=== PATIENT | female | born 1995 | race Hispanic/Latino ===

== ENCOUNTER 2017-10-05 15:39 | Emergency (ER) | payer OTHER ==
[2017-10-05 17:06] LABS: Absolute Lymphocytes (CBC) 1.8 K/uL (0.7-4.9); Absolute Monocytes 0.5 K/uL (0.1-1.3); Absolute Neutrophil 7.4 K/uL (1.8-8.0); Basophils % 0.2 % (0-1.3); Eosinophils % 0.9 % (0-4.4); Hematocrit 38.1 % (36.0-45.0); Lymphocytes % 18.2 % (15.3-44.8); MCH 31.4 pg (27.0-35.0); MCV 93.7 fL (80-100); MPV 9.8 fL (7.6-11.3); Monocytes % 5.3 % (3.3-12.3); RBC Red Blood Cell Count 4.07 M/uL (3.86-4.86)
[2017-10-05 17:20] LABS: Urine Blood NEGATIVE (NEG); Urine Glucose NEGATIVE (NEG); Urine Protein NEGATIVE (NEG); Urine pH 5.5 (5.0-7.0)
[2017-10-05 17:24] LABS: Urine Bacteria <20 /HPF (<20); Urine Culture Reflex Order NOT NEEDED; Urine RBC <5 /HPF (NONE SEEN)
--- NOTE | 2017-10-05 17:42 | ER ---
Nurse's Notes [facility] Name: Yuridia Guzman Age: 22 yrs Sex: Female : 1995 Arrival Date: 10/05/2017 Time: 15:42 Bed 26 Private MD: Out, [facility] Diagnosis: Intrauterine Presentation: 10/05 16:00 Presenting complaint: Patient states: I went to the doctor last week because something aj1 felt wrong and I thought I had lost the baby. I've been having a lot of bleeding. I went to the office and they did the baby's heart rate and it was 158. This morning I've felt really drained. My head is throbbing and I'm having pain roll across my stomach, I'm having nonstop diarrhea and back pain." Patient states she is 14 weeks . Denies vaginal bleeding at this time. States she has vomited 3 times today. Transition of care: patient was not received from another setting of care. Onset of symptoms was October 05, 2017. Risk Assessment: Do you want to hurt yourself or someone else? Patient reports no desire to harm self or others. Initial Sepsis Screen: Does the patient meet any 2 criteria? No. Patient's initial sepsis screen is negative. Does the patient have a suspected source of infection? No. Patient's initial sepsis screen is negative. Care prior to arrival: None. 16:00 Method Of Arrival: Ambulatory aj1 16:00 Acuity: KAYCEE 3 aj1 Triage Assessment: 16:11 General: Appears in no apparent distress. comfortable, Behavior is calm, cooperative, aj1 appropriate for age. Pain: Pain currently is 7 out of 10 on a pain scale. Neuro: Level of Consciousness is awake, alert, obeys commands. Cardiovascular: Patient's skin is warm and dry. Respiratory: Airway is patent Respiratory effort is even, unlabored, Respiratory pattern is regular, symmetrical. GI: Reports lower abdominal pain, diarrhea, nausea, vomiting. : Denies vaginal bleeding. Derm: Skin is pink, warm \\T\\ dry. normal. 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 - Social history:: Smoking status: Patient/guardian denies using tobacco. - Ebola Screening: : No symptoms or risks identified at this time. - Family history:: not pertinent. - Hospitalizations: : No recent hospitalization is reported. Screenin:04 Abuse screen: Denies threats or abuse. Denies injuries from another. Nutritional rv screening: No deficits noted. Tuberculosis screening: No symptoms or risk factors identified. Fall Risk None identified. Assessment: 16:45 General: Appears in no apparent distress. comfortable, Behavior is calm, cooperative. rv 16:45 Pain: Complains of pain in abdomen. Neuro: Level of Consciousness is awake, alert, rv obeys commands, Oriented to person, place, time, situation. Cardiovascular: Capillary refill < 3 seconds. Respiratory: Airway is patent. GI: Bowel sounds present X 4 quads. Abd is soft and non tender Abd is non tender. : No signs and/or symptoms were reported regarding the genitourinary system. EENT: No signs and/or symptoms were reported regarding the EENT system. Derm: Skin is intact. Vital Signs: 16:11 BP 114 / 69; Pulse 89; Resp 18; Temp 97.5(O); Pulse Ox 99% on R/A; Weight 54.88 kg (R); aj1 Height 5 ft. 0 in. (152.40 cm); 18:08 BP 101 / 62; Pulse 82; Pulse Ox 100% on R/A; rv 16:11 Body Mass Index 23.63 (54.88 kg, 152.40 cm) aj1 ED Course: 15:42 Patient arrived in ED. sb2 15:42 Out, [facility] is Private Physician. sb2 16:08 Triage completed. aj1 16:11 Arm band placed on Patient placed in an exam room. aj1 16:18 Brent Peep MD is Attending Physician. rn 16:46 Leatha Garcia, GLORIA is Primary Nurse. kr2 16:50 Inserted saline lock: 20 gauge in right antecubital area, using aseptic technique. kr2 Blood collected. 17:04 Patient has correct armband on for positive identification. Placed in gown. Bed in low rv position. Call light in reach. Side rails up X 1. Pulse ox on. NIBP on. 17:40 Ultrasound completed. Patient tolerated well. Notified ED Physician renetta. sg3 17:43 US Transvaginal Ob In Process Unspecified. EDMS 18:07 No provider procedures requiring assistance completed. IV discontinued, bleeding rv controlled, No redness/swelling at site. Pressure dressing applied. Administered Medications: No medications were administered Outcome: 17:42 Discharge ordered by . rn 18:08 Discharged to home ambulatory. rv 18:08 Condition: good 18:08 Discharge instructions given to patient, Instructed on discharge instructions, follow up and referral plans. 18:08 Patient left the ED. rv Signatures: Dispatcher [employer] [facility] Malaika Prather RN RN aj1 Brent Pepe MD MD rn Reaves, Karey, RN RN odilia2 Elizabeth Cain sg3 Reba Suárez sb2 Randy Nails RN RN rv
--- NOTE | 2017-10-05 17:42 | EDPHYS ---
Physician Documentation [facility] Name: Yuridia Guzman Age: 22 yrs Sex: Female : 1995 Arrival Date: 10/05/2017 Time: 15:42 Bed 26 Private MD: Out, [facility] ED Physician Brent Pepe HPI: 10/05 17:22 This 22 yrs old Female presents to ER via Ambulatory with complaints of rn Abdominal Pain - 13 WK PG. 17:22 The patient presents to the emergency department with abdominal pain, vaginal bleeding. rn The estimated gestational age is 13 weeks. Previous pregnancies: in previous pregnancies patient has had. The patient has experienced similar episodes in the past. at approx 13w5d by recent u/s 3 days ago presents with abd cramping, lower back pain, seen by OB 3 days ago with u/s confirmed IUP and heart rate, she is concerned because she has seen 2 OBs this , neither hold her confidence and she is concerned they are keeping results from her, has had 2 previous miscarriages in past, no recent trauma, + mild bleeding, states in O- but has never been offered rhogam. . 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 - Social history:: Smoking status: Patient/guardian denies using tobacco. - Ebola Screening: : No symptoms or risks identified at this time. - Family history:: not pertinent. - Hospitalizations: : No recent hospitalization is reported. ROS: 17:22 Constitutional: Negative for fever, chills, and weight loss, Eyes: Negative for injury, rn pain, redness, and discharge, Neck: Negative for injury, pain, and swelling, Cardiovascular: Negative for chest pain, palpitations, and edema, Respiratory: Negative for shortness of breath, cough, wheezing, and pleuritic chest pain, Abdomen/GI: Negative for diarrhea, and constipation, MS/Extremity: Negative for injury and deformity, Skin: Negative for injury, rash, and discoloration, Neuro: Negative for headache, weakness, numbness, tingling, and seizure. Exam: 17:22 Constitutional: This is a well developed, well nourished patient who is awake, alert, rn and in no acute distress. Head/Face: Normocephalic, atraumatic. Eyes: Pupils equal round and reactive to light, extra-ocular motions intact. Lids and lashes normal. Conjunctiva and sclera are non-icteric and not injected. Cornea within normal limits. Periorbital areas with no swelling, redness, or edema. Cardiovascular: Regular rate and rhythm with a normal S1 and S2. No gallops, murmurs, or rubs. Normal PMI, no JVD. No pulse deficits. Respiratory: Lungs have equal breath sounds bilaterally, clear to auscultation and percussion. No rales, rhonchi or wheezes noted. No increased work of breathing, no retractions or nasal flaring. Abdomen/GI: Soft, non-tender, with normal bowel sounds. No distension or tympany. No guarding or rebound. No evidence of tenderness throughout. Back: No spinal tenderness. No costovertebral tenderness. Full range of motion. MS/ Extremity: Pulses equal, no cyanosis. Neurovascular intact. Full, normal range of motion. Equal circumference. Neuro: Awake and alert, GCS 15, oriented to person, place, time, and situation. Cranial nerves II-XII grossly intact. Motor strength 5/5 in all extremities. Sensory grossly intact. Cerebellar exam normal. Normal gait. Vital Signs: 16:11 BP 114 / 69; Pulse 89; Resp 18; Temp 97.5(O); Pulse Ox 99% on R/A; Weight 54.88 kg (R); aj1 Height 5 ft. 0 in. (152.40 cm); 18:08 BP 101 / 62; Pulse 82; Pulse Ox 100% on R/A; rv 16:11 Body Mass Index 23.63 (54.88 kg, 152.40 cm) aj1 MDM: 16:18 Patient medically screened. rn 17:41 Differential diagnosis: UTI. Data reviewed: vital signs, nurses notes, lab test rn result(s), EKG, radiologic studies, ultrasound, and as a result, I will discharge patient. Counseling: I had a detailed discussion with the patient and/or guardian regarding: the historical points, exam findings, and any diagnostic results supporting the discharge/admit diagnosis, lab results, radiology results, the need for outpatient follow up, to return to the emergency department if symptoms worsen or persist or if there are any questions or concerns that arise at home. Special discussion: I discussed with the patient/guardian in detail that at this point there is no indication for admission to the hospital. It is understood, however, that if the symptoms persist or worsen the patient needs to return immediately for re-evaluation. ED course: RH+, no UTI, normal u/s, will dc home with OB f/u.. 10/05 16:35 Order name: Quantitative Hcg rn 10/05 16:35 Order name: Abo/rh Typing; Complete Time: 17:36 rn 10/05 16:35 Order name: Basic Metabolic Panel rn 10/05 16:35 Order name: CBC with Diff; Complete Time: 17:36 rn 10/05 16:35 Order name: Urine Microscopic Only; Complete Time: 17:36 rn 10/05 17:08 Order name: Urine Dipstick--Ancillary (enter results); Complete Time: 17:36 eb 10/05 16:35 Order name: Urine Test (obtain specimen); Complete Time: 16:56 rn 10/05 16:35 Order name: IV Saline Lock; Complete Time: 16:56 rn 10/05 16:35 Order name: Labs collected and sent; Complete Time: 16:56 rn 10/05 16:35 Order name: NPO; Complete Time: 16:56 rn 10/05 16:35 Order name: Urine Dipstick-Ancillary (obtain specimen); Complete Time: 16:56 rn 10/05 16:35 Order name: US Transvaginal Ob rn 10/05 17:08 Order name: Urine --Ancillary (enter results); Complete Time: 17:36 eb Administered Medications: No medications were administered Disposition: 10/05/17 17:42 Discharged to Home. Impression: Intrauterine . - Condition is Stable. - Discharge Instructions: Abdominal Pain During , First Trimester of . - Medication Reconciliation Form, Thank You Letter, Antibiotic Education, Prescription Opioid Use form. - Follow up: Private Physician; When: As needed; Reason: Recheck today's complaints, Re-evaluation by your physician. - Problem is new. - Symptoms have improved. Signatures: Dispatcher [employer] Malaika Oliveira RN RN aj1 Brent Pepe MD MD rn Vicente, Ronaldo, RN RN rv Corrections: (The following items were deleted from the chart) 18:08 17:42 10/05/2017 17:42 Discharged to Home. Impression: Intrauterine . rv Condition is Stable. Forms are Medication Reconciliation Form, Thank You Letter, Antibiotic Education, Prescription Opioid Use. Follow up: Private Physician; When: As needed; Reason: Recheck today's complaints, Re-evaluation by your physician. Problem is new. Symptoms have improved. rn
[2017-10-05 17:48] LABS: BUN Blood Urea Nitrogen 8 mg/dL (7-18); Bicarbonate 24 mmol/L (21-32); Glucose Level 84 mg/dL (74-106); HCG, Quantitative 66252 mIU/mL (1-3); Potassium 3.7 mmol/L (3.5-5.1); Sodium Level 139 mmol/L (136-145)
--- NOTE | 2017-10-05 18:16 | RAD REPORT ---
EXAM DESCRIPTION: US - Transvaginal OB - 10/05/2017 5:43 pm CLINICAL HISTORY: Pelvic pain, Preliminary findings provided at the time of the study. COMPARISON: None. FINDINGS: Single intrauterine gestation identified. Cervix is long and closed. Heart rate is 154 BPM . Head, abdomen and extremity measurements were obtained. Calculated age is 13 weeks 5 days. LEXI is 0 04/07/2018. Anatomic assessment is limited at this early age. No gross abnormality seen. No hematoma, mass or other intrauterine abnormality. Placenta is anterior with no suspicious finding. Amniotic fluid volume is normal. Maternal adnexa assessment shows no ovarian or adnexal abnormality. No abnormal free fluid. IMPRESSION: Single 13 week 5 day IUP. LEXI is 04/07/2018. Heart rate is normal. No intrauterine or extra uterine suspicious finding.
[2017-10-05 18:42] VITALS: TEMP 97.5
[2017-10-05 18:43] VITALS: BP 101/62; O2SAT 100
== END 2017-10-05 18:08 | disposition home or self-care (01) ==
LOC: ER 15:39
DX: O26.891 Other specified pregnancy related conditions, first trimester (principal); Z3A.13 13 weeks gestation of pregnancy; Z88.8 Allergy status to other drugs, medicaments and biological substances
CPT/HCPCS: 36415; 76817; 80048; 81003; 81015; 81025; 84702; 85025; 86900; 86901; 99284

== ENCOUNTER 2019-11-01 00:19 | Emergency (ER) | payer OTHER ==
--- OUTSIDE RECORDS SUMMARY | 2019-11-01 00:22 | XMS REPORT | Continuity of Care Document ---
:1995 Author Organization [facility] t Address [address] [place] [address] Dr. Pineda [address] [place] [id number] Care Team Providers Name Role Phone Unavailable Unavailable Unavailable Problems This patient has no known problems. Allergies, Adverse Reactions, Alerts This patient has no known allergies or adverse reactions. Medications This patient has no known medications. Procedures This patient has no known procedures. Results This patient has no known results.
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
[2019-11-01] MEDS ORDERED: HYDROCODONE/APAP 10/325 TAB ONE (00:52)
[2019-11-01] MEDS ORDERED: DOXYCYCLINE 100 MG CAP PO ONE (00:54)
[2019-11-01 19:54] VITALS: BP 125/96; TEMP 98.6; O2SAT 100
== END 2019-11-01 01:09 | disposition home or self-care (01) ==
LOC: ER 00:19
DX: T21.23XA Burn of second degree of upper back, initial encounter (principal); X15.8XXA Contact with other hot household appliances, initial encounter; Y93.89 Activity, other specified; Y92.814 Boat as the place of occurrence of the external cause; Z88.8 Allergy status to other drugs, medicaments and biological substances
CPT/HCPCS: 99284

== ENCOUNTER 2019-11-02 13:35 | Emergency (ER) | payer OTHER ==
--- OUTSIDE RECORDS SUMMARY | 2019-11-02 13:39 | XMS REPORT | Continuity of Care Document ---
:1995 Author Organization [facility] t Address [address] [place] [address] Dr. Pineda [address] [place] [id number] Care Team Providers Name Role Phone Unavailable Unavailable Unavailable Problems This patient has no known problems. Allergies, Adverse Reactions, Alerts This patient has no known allergies or adverse reactions. Medications This patient has no known medications. Procedures This patient has no known procedures. Results This patient has no known results.
[2019-11-02] MEDS ORDERED: SILVER SULFADIAZINE 1% 50 GM TOP ONE (14:24)
[2019-11-02] MEDS ORDERED: MUPIROCIN 2% OINT 22GM TUBE TOP ONE (14:25)
[2019-11-02] MEDS ORDERED: HYDROCODONE/APAP 5/325 MG TAB ONE (14:36)
[2019-11-02] MEDS ORDERED: ONDANSETRON 4 MG (ODT) TAB ONE (14:36)
[2019-11-02] MEDS ORDERED: predniSONE 20 MG TAB ONE (14:36)
[2019-11-02] MEDS ORDERED: FAMOTIDINE 20 MG TAB ONE ×2 (14:37)
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
[2019-11-02 18:38] VITALS: TEMP 97.8
[2019-11-02 18:39] VITALS: BP 119/67; O2SAT 100
== END 2019-11-02 15:24 | disposition home or self-care (01) ==
LOC: ER 13:35
DX: R21 Rash and other nonspecific skin eruption (principal); T21.23XA Burn of second degree of upper back, initial encounter; Z88.5 Allergy status to narcotic agent; Z91.040 Latex allergy status; Z91.048 Other nonmedicinal substance allergy status
CPT/HCPCS: 99284; J7512

== ENCOUNTER 2021-06-25 09:33 | Day surgery (SDC) | payer OTHER ==
[2021-06-25] MEDS ORDERED: Ringers Lactate 1,000 ML IV ONE ×2 (10:04→13:57)
[2021-06-25] MEDS ORDERED: LIDOCAINE 2% MPF 5 ML VIAL ONE (10:59)
[2021-06-25] MEDS ORDERED: dexAMETHasone 10 MG/ML VIAL ONE (10:59)
[2021-06-25] MEDS ORDERED: FENTANYL CITR 100 MCG/2 ML ONE ×2 (10:59→13:03)
[2021-06-25] MEDS ORDERED: KETOROLAC 30 MG/ML INJ ONE (10:59)
[2021-06-25] MEDS ORDERED: ONDANSETRON 4 MG/2 ML VIAL ONE (11:00)
[2021-06-25] MEDS ORDERED: propofoL 200 MG/20 ML VIAL IV ONE (11:00)
[2021-06-25] MEDS ORDERED: MIDAZOLAM HCL 2 MG/2 ML INJ ONE (11:00)
[2021-06-25] MEDS ORDERED: SUCCINYLCHOLINE 20 MG/ML (10 ML) IV ONE (11:05)
[2021-06-25] MEDS ORDERED: ROCURONIUM 50 MG/5 ML VIAL IV ONE (11:05)
[2021-06-25] MEDS ORDERED: LIDOCAINE 1% W/EPI 1:100,000 10 ML VIAL ONE ×2 (11:07→12:07)
[2021-06-25] MEDS ORDERED: OXYMETAZOLINE HCL 0.05% 15ML NAS ONE (11:07)
[2021-06-25] MEDS ORDERED: NA CHLORIDE 0.9% 250 ML ONE ×3 (11:07→13:05)
[2021-06-25] MEDS ORDERED: GLYCOPYRROLATE 0.2 MG/ML SYR ONE (11:42)
[2021-06-25] MEDS ORDERED: EPHEDRINE SULF 50 MG/ML VIAL ONE (11:50)
[2021-06-25] MEDS ORDERED: Phenylephrine HCl 10 MG/ML 1 ML VIAL ONE (12:22)
[2021-06-25] MEDS ORDERED: CEFAZOLIN SODIUM 1 GM/VIAL ONE (13:56)
[2021-06-25] MEDS: HYDROMORPHONE HCL 1 MG/ML INJ ONE ×2 (14:20→14:26)
[2021-06-25] MEDS ORDERED: HYDROMORPHONE HCL 1 MG/ML INJ ONE (14:45)
[2021-06-25 15:24] VITALS: BP 113/65; TEMP 97.3; O2SAT 100
[2021-06-25] MEDS ORDERED: HYDROCODONE/APAP 5/325 MG TAB ONE (16:00)
[2021-06-25] MEDS ORDERED: HYDROCODONE/APAP 5/325 MG TAB PO PRN (16:02)
[2021-06-25] MEDS ORDERED: ONDANSETRON 4 MG/2 ML VIAL IV PRN (16:03)
--- NOTE | 2021-06-26 06:25 | OP ---
Date of Procedure: 06/25/2021 Surgeon: DEACON JUAN Primary Care Physician: Unknown. Preoperative Diagnoses: 1. Bilateral nasal septal deviation. 2. Bilateral nasal obstruction secondary to inferior turbinate hypertrophy. 3. Bilateral chronic ethmoid sinusitis. 4. Bilateral chronic sphenoid sinusitis. 5. External nasal deformity. Postoperative Diagnoses: 1. Bilateral nasal septal deviation. 2. Bilateral nasal obstruction secondary to inferior turbinate hypertrophy. 3. Bilateral chronic ethmoid sinusitis. 4. Bilateral chronic sphenoid sinusitis. 5. External nasal deformity. Procedures: 1. Bilateral diagnostic sinus endoscopy. 2. Septoplasty. 3. Bilateral sphenoid balloon sinuplasty. 4. Bilateral anterior ethmoidectomies. 5. Modified rhinoplasty. 6. Bilateral Coblation of submucosal inferior turbinates. 7. Bilateral inferior turbinate outfracture. Anesthesia: General endotracheal anesthesia was administered. I also infiltrated approximately 10 to 12 mL of 1% lidocaine with 1:100,000 epinephrine into the nasal soft tissue envelope, nasal septal mucosa, inferior turbinate mucosa, and bilateral uncinate process mucosa. Afrin-soaked nasal pledgets were used for vasoconstriction and decongestion. Estimated Blood Loss: Approximately it would be 25 to 30 mL. Specimens: Nasal septal cartilage and bone to the pathology. Findings: Severe bilateral nasal septal deviation with a left inferior and posterior septal spurs, right superior and mid septal spur. Bilateral inferior turbinate hypertrophy 3/4. Polypoid ethmoidal mucosa-anterior ethmoid sinuses. Bilateral sphenoid rostral stenosis with inflammation-moderate. Nasal dorsum and hump-noted bony nasal dorsum. Complications: None. Disposition: Stable. The patient tolerated the procedure well. Indication For Procedure: Patient is a pleasant 26-year-old female, who presented to my outpatient clinic with chronic sinusitis resulting in frequent headaches and intranasal pain and obstruction with inability to breathe through the nose and with chronic nightly snoring and mouth breathing. The patient has had several episodes of nasal trauma in the remote past and she has a history of allergies, which exacerbated her ability to breathe through the nose. The patient has been on multiple rounds of antibiotics and CT scan demonstrated mucosal thickening right greater than left sphenoid as well as bilateral ethmoid sinuses. She also had frontal and maxillary sinus effusion, but due to inflammation, we were unable to proceed with balloon sinuplasty of the sinuses and we will have to bring her back for another procedure at some point. However, we discussed the possible procedures and the complications and risks associated with them and she agreed and signed a consent form which was placed in the chart. Description Of Procedure: Patient was transferred from the preoperative holding area to the operative suite by Department of Anesthesia, placed on the operating room table supine, sedated, and intubated in normal fashion. Table was rotated to 180 degrees and a head rest was placed. I infiltrated approximately 8 mL of 1% lidocaine with 1:100,000 epinephrine into bilateral nasal septal mucosa, inferior turbinate mucosa and external nasal soft tissue envelope. I also then infiltrated intraoperatively 2 to 4 mL of 1% lidocaine with 1:100,000 epinephrine into axilla of bilateral middle turbinate mucosa as well as the uncinate process mucosa. The patient was then prepped and draped. We inserted Afrin-soaked nasal pledgets for vasoconstriction and decongestion. After the patient was prepped and draped, the pledgets were removed and I utilized a 0-degree rigid nasal endoscope to take photo documentation. The scope was advanced along the bilateral nasal floor. The patient had significant nasal obstruction secondary to deviated septum. It was decided that we would attempt sphenoid balloon sinuplasty first followed by septoplasty and then ethmoidectomies and if we could gain access to the frontal and maxillary sinuses, we would attempt to open those sinuses up as well. I advanced along the floor past bilateral bony septal spurs and was able to gain access to the sphenoid sinus, rostral openings, and inflated the balloon to 12 mmHg and deflated it once I was able to locate the ostial openings. I then proceeded to incise the left nasal septal mucosa exposing the cartilaginous obstruction of the nasal septum. I then made a crossover incision with a #15 blade scalpel and isolated the nasal septal cartilage with my longer nasal speculum. I then removed bony and cartilaginous spurs utilizing a [place] elevator as well as a chisel and hammer. I then had to incise the right nasal septal mucosa further back in the nasal cavity and I was able to remove a very large bony spur noted there. There was evidence of trauma to the vomer and this had to be removed. I reapproximated the nasal septal flaps with 4-0 plain gut suture on a straight Israel needle, followed by reapproximation of the vestibular incision with 5-0 plain gut suture in a continuous running fashion. Next, I proceeded to perform bilateral anterior ethmoidectomies with a 4.3 microdebrider blade. Due to inflammation, we decided to forego and skip bilateral maxillary and frontal balloon sinuplasties. We had attempt for balloon sinuplasties but due to inflammation we were unable to gain access. I then made an incision just superior to the upper lateral cartilages just adjacent to the bony nasal dorsum with a #15 blade scalpel and created a pocket between the bony nasal dorsum and the overlying soft tissue envelope. I was then able to insert a bone rasper and was able to take down the bony nasal dorsal hump. This was removed. I then inserted the Propel implants into bilateral middle meatus utilizing the rigid nasal endoscope. I then performed bilateral submucosal Coblation of bilateral inferior turbinates starting from one bilaterally and was able to reduce the inferior turbinate mucosa and bone on a setting of 7 for ablation and then hemostasis was achieved on a setting of 3 of coagulation. I then outfractured bilateral inferior turbinates with a [place] elevator. I then inserted antibiotic coated Gonzalez splints which were cut down to size and inserted them bilaterally and then secured the splints at the caudal septum with a 2.0 Prolene suture. A mustache dressing was placed. The patient tolerated the procedure well, will be discharged home on antibiotic and analgesic medication. Will follow up in 1 to 2 weeks or sooner if needed. INDIO/AURA Voice ID: [id number] Report ID: [id number] LADONNA
== END 2021-06-25 16:10 | disposition home or self-care (01) ==
LOC: OR 09:33
PROVIDERS: ATTEND Otolaryngology Facial Plastic Surgery
PROC: 09BL7ZZ Excision of Nasal Turbinate, Via Natural or Artificial Opening (ICD-10-PCS; 2021-06-25)
PROC: 09QX4ZZ Repair Left Sphenoid Sinus, Percutaneous Endoscopic Approach (ICD-10-PCS; 2021-06-25)
PROC: 09QW4ZZ Repair Right Sphenoid Sinus, Percutaneous Endoscopic Approach (ICD-10-PCS; 2021-06-25)
PROC: 090K0ZZ Alteration of Nasal Mucosa and Soft Tissue, Open Approach (ICD-10-PCS; 2021-06-25)
PROC: 09SL8ZZ Reposition Nasal Turbinate, Via Natural or Artificial Opening Endoscopic (ICD-10-PCS; principal; 2021-06-25 11:00)
PROC: 09BM4ZZ Excision of Nasal Septum, Percutaneous Endoscopic Approach (ICD-10-PCS; 2021-06-25 11:00)
DX: M95.0 Acquired deformity of nose (principal); J32.4 Chronic pansinusitis; J34.2 Deviated nasal septum; J34.3 Hypertrophy of nasal turbinates; J32.2 Chronic ethmoidal sinusitis; J32.3 Chronic sphenoidal sinusitis
CPT/HCPCS: 31254; 30930; 30802; 31297; 30420; 81025; 88304; 88311; J2704; J0330; J2370; J2720; J2250; J3010 ×2; J1100; J1170; J7120 ×2; J7050 ×3; J2405; J0690; 88305

== ENCOUNTER 2021-06-26 04:05 | Emergency (ER) | payer OTHER ==
--- OUTSIDE RECORDS SUMMARY | 2021-06-26 04:08 | XMS REPORT | Continuity of Care Document ---
:1995 Author Organization [facility] t Address [address] [place] [address] Dr. Pineda [address] [place] [id number] Care Team Providers Name Role Phone Unavailable Unavailable Unavailable Problems This patient has no known problems. Allergies, Adverse Reactions, Alerts This patient has no known allergies or adverse reactions. Medications This patient has no known medications. Procedures This patient has no known procedures. Results This patient has no known results.
[2021-06-26] MEDS ORDERED: TRANEXAMIC ACID 1,000 MG/10 ML VIAL IV ONE (04:53)
[2021-06-26] MEDS ORDERED: MORPHINE 2 MG/ML SYR ONE (04:53)
[2021-06-26] MEDS ORDERED: ONDANSETRON 4 MG/2 ML VIAL ONE (04:53)
[2021-06-26 04:54] LABS: Hematocrit 38.2 % (36.0-45.0); Lymphocytes % 8.6 % (15.3-44.8); MPV 9.2 fL (7.6-11.3); RBC Red Blood Cell Count 4.07 M/uL (3.86-4.86)
[2021-06-26] MEDS ORDERED: NA CHLORIDE 0.9% 1,000 ML ONE (04:54)
[2021-06-26 05:02] LABS: Protime INR 1.06
[2021-06-26 05:12] LABS: ALT/SGPT 20 U/L (12-78); AST/SGOT 14 U/L (15-37); Albumin 3.8 g/dL (3.4-5.0); Alkaline Phosphatase 56 U/L (45-117); BUN Blood Urea Nitrogen 11 mg/dL (7-18); Bicarbonate 21 mmol/L (21-32); Bilirubin Total 0.9 mg/dL (0.2-1.0); Glucose Level 115 mg/dL (74-106); Potassium 3.8 mmol/L (3.5-5.1); Protein, Total 7.2 g/dL (6.4-8.2); Sodium Level 136 mmol/L (136-145)
[2021-06-26 05:17] LABS: Blood Morphology Comment NOT SEEN (NOT SEEN); Platelet Estimate ADEQ
[2021-06-26] MEDS ORDERED: NA CHLORIDE 0.9% 100 ML IV ONE (05:38)
--- NOTE | 2021-06-26 06:12 | ER ---
Nurse's Notes [facility] Name: Yuridia Guzman Age: 26 yrs Sex: Female : 1995 Arrival Date: 06/26/2021 Time: 04:06 Bed 16 Private MD: Diagnosis: Epistaxis Presentation: 06/26 04:25 Chief complaint: Patient states: she had rhinoplasty and septoplasty here yesterday and bb now is coughing up blood, feels dizzy, was not able to get her pain medication filled and is having a lot of pain. Coronavirus screen: At this time, the client does not indicate any symptoms associated with coronavirus-19. Ebola Screen: No symptoms or risks identified at this time. Initial Sepsis Screen: Does the patient meet any 2 criteria? No. Patient's initial sepsis screen is negative. Does the patient have a suspected source of infection? No. Patient's initial sepsis screen is negative. Risk Assessment: Do you want to hurt yourself or someone else? Patient reports no desire to harm self or others. Onset of symptoms was June 25, 2021. 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 - Social history:: Smoking status: Patient denies any tobacco usage or history of. - Family history:: not pertinent. Screenin:48 Abuse screen: Denies threats or abuse. Denies injuries from another. Nutritional lg3 screening: No deficits noted. Tuberculosis screening: No symptoms or risk factors identified. Fall Risk None identified. Assessment: 05:48 General: Appears in no apparent distress. comfortable, Behavior is calm, cooperative. lg3 Pain: Complains of pain in nose. Neuro: No deficits noted. Rice Agitation-Sedation Scale (RASS): 0 - Alert and Calm Level of Consciousness is awake, alert, obeys commands, Oriented to person, place, time, situation. Cardiovascular: No deficits noted. Denies chest pain, shortness of breath, Capillary refill < 3 seconds Clubbing of nail beds is absent JVD is absent Patient's skin is warm and dry. Respiratory: No deficits noted. Airway is patent Trachea midline Respiratory effort is even, unlabored, Respiratory pattern is regular, symmetrical. GI: No deficits noted. No signs and/or symptoms were reported involving the gastrointestinal system. : No deficits noted. No signs and/or symptoms were reported regarding the genitourinary system. EENT: Nares with bleeding noted bilaterally Parent/caregiver reports the patient having pain nasal discharge that is bloody. Derm: No deficits noted. Skin is intact, is healthy with good turgor, Skin is dry, Skin is pink, warm \T\ dry. Musculoskeletal: No deficits noted. No signs and/or symptoms reported regarding the musculoskeletal system. Circulation, motion, and sensation intact. Range of motion: intact in all extremities. 07:16 Reassessment: Patient appears in no apparent distress at this time. No changes from lg3 previously documented assessment. Patient and/or family updated on plan of care and expected duration. Pain level reassessed. Patient is alert, oriented x 3, equal unlabored respirations, skin warm/dry/pink. Vital Signs: 04:25 BP 112 / 83; Pulse 71; Resp 16 S; Temp 98.5(O); Pulse Ox 98% on R/A; Weight 55.34 kg bb (R); Height 5 ft. 0 in. (152.40 cm) (R); Pain 8/10; 05:51 BP 125 / 87; Pulse 72; Pulse Ox 100% on R/A; lg3 07:22 BP 109 / 77; Pulse 79; Resp 16; Pulse Ox 100% on R/A; ll1 04:25 Body Mass Index 23.83 (55.34 kg, 152.40 cm) ED Course: 04:06 Patient arrived in ED. kz 04:16 Carlos Conn MD is Attending Physician. lyubov 04:27 Triage completed. bb 04:28 Arm band placed on Patient placed in an exam room, on a stretcher, on pulse oximetry. bb Family accompanied patient. 05:24 Karine Montes, GLORIA is Primary Nurse. lg3 05:48 Patient has correct armband on for positive identification. Bed in low position. Call lg3 light in reach. Side rails up X 1. Pulse ox on. NIBP on. Door closed. Noise minimized. Warm blanket given. Pillow given. 05:48 Inserted saline lock: 24 gauge in left antecubital area, using aseptic technique. Blood lg3 collected. 06:11 Susanna Hardin MD is Referral Physician. [facility] 07:23 No provider procedures requiring assistance completed. IV discontinued, intact, ll1 bleeding controlled, No redness/swelling at site. Pressure dressing applied. Administered Medications: 05:43 Drug: Zofran (Ondansetron) 4 mg Route: IVP; Site: left antecubital; lg3 05:43 Follow up: Response: No adverse reaction lg3 05:44 Drug: Tranexamic Acid 1000 mg Route: IV; Rate: per protocol; Site: left antecubital; lg3 05:47 Follow up: Response: No adverse reaction; IV Status: Completed infusion; IV Intake: lg3 110ml 05:44 Drug: morphine 2 mg Route: IVP; Site: left antecubital; lg3 05:44 Follow up: Response: No adverse reaction lg3 05:47 Drug: NS 0.9% 1000 ml Route: IV; Rate: 1 bolus; Site: left antecubital; lg3 07:23 Follow up: Response: No adverse reaction; IV Status: Completed infusion; IV Intake: ll1 1000ml Intake: 05:47 IV: 110ml; Total: 110ml. lg3 07:23 IV: 1000ml; Total: 1110ml. 1 Outcome: 06:11 Discharge ordered by . [facility] 07:23 Discharged to home ambulatory. 1 07:23 Condition: stable 07:23 Discharge instructions given to patient, Instructed on discharge instructions, follow up and referral plans. Demonstrated understanding of instructions, follow-up care. 07:24 Patient left the ED. 1 Signatures: Carlos Conn MD MD cha Ballard, Brenda RN Karine Bustamante RN RN lg3 Michael Godwin RN RN 1 Diana Mittal
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
--- NOTE | 2021-06-26 06:30 | P.CNS ---
Date of Consult: 06/26/21 Chief complaint: nasal bleeding History of present illness: 26-year-old female with a 1 day history of bilateral nasal bleeding. The patient underwent nasal surgery by Dr. Hardin. She reported bleeding that was mild to moderate and ongoing since the time of her surgery. She contacted the on-call ENT at 3:30 AM reporting bleeding including coughing up blood approximately the size of a tablespoon. She was instructed to go to the emergency room for evaluation. The patient had been instructed to apply and replace the mustache dressing as needed. She last replaced the mustache dressing at approximately 3 AM while at home. Upon arrival to the emergency room, on instructions from the on-call ENT, she was treated with 1 g IV TXA. She has no known history of bleeding disorder but reports that bleeding during surgery was more than expected resulting in a change in surgical plan. No dictation or documentation regarding the surgery is available at the time of this evaluation. Allergies: latex Physical exam: vital signs are stable, patient is afebrile. The patient is in no acute distress. The nasal dressing in place at the time of my evaluation is approximately 60% saturated with fresh blood. After removal of the mustache dressing, the nasal cavity is obscured with clot on the left. The suture line within the left nasal vestibule appears dry without active oozing or bleeding. Removal of clot is not attempted. The right nasal cavity is obstructed with a Gonzalez splint. A small amount of clot surrounding it. There is no active bleeding from the bilateral naris. The oral cavity is clear. There is scant blood on the posterior oropharyngeal wall but no clots and no active bleeding. Laboratory data hemoglobin 12.7 Assessment: postnasal surgery hemorrhage, mild/controlled. Treatment plan: Given the patient's exam findings, I feel she is stable for discharge. I attempted communication with Dr. Hardin but given the time of day, I recommend discharge to home and instructed the patient to contact Dr. Hardin's office to arrange for additional postop evaluation. The patient was prescribed narcotic pain medications in association with her surgery and no additional medications are deemed necessary at this time.
[2021-06-26 07:29] VITALS: TEMP 98.5
[2021-06-26 07:31] VITALS: O2SAT 100
[2021-06-26 07:32] VITALS: BP 109/77
== END 2021-06-26 07:24 | disposition home or self-care (01) ==
LOC: ER 04:05
DX: R04.0 Epistaxis (principal); E03.9 Hypothyroidism, unspecified; Z88.5 Allergy status to narcotic agent; Z88.8 Allergy status to other drugs, medicaments and biological substances; Z91.040 Latex allergy status; Z91.048 Other nonmedicinal substance allergy status
CPT/HCPCS: 96361; 85025; 36415; 85610; 80053; 96375; 96374; 99284; J2270; J7030; J2405

== ENCOUNTER 2024-05-31 17:56 | Emergency (ER) | payer SELFPAY ==
[2024-05-31] MEDS ORDERED: IPRATROPIUM BROM 0.5MG/2.5ML ONE (18:11)
[2024-05-31] MEDS ORDERED: ALBUTEROL 2.5 MG/3 ML NEB SOL ONE (18:11)
[2024-05-31] MEDS ORDERED: predniSONE 20 MG TAB ONE (18:12)
--- NOTE | 2024-05-31 18:43 | RAD REPORT ---
EXAMINATION: ONE VIEW CHEST XR CLINICAL INDICATION: COUGH TECHNIQUE: Frontal chest projection is submitted. Examination is limited by patient positioning and t echnique. COMPARISON: No prior exam. FINDINGS: The lungs are well inflated and clear. The heart is normal in size. No displaced fractures identified . IMPRESSION: No acute intrathoracic abnormalities.
[2024-05-31 19:07] LABS: Influenza A Ag Negative; Influenza B Ag Negative; SARS-CoV-2 Antigen Rapid Res Negative (Negative)
--- NOTE | 2024-05-31 19:19 | EDPHYS ---
Physician Documentation [facility] Name: Yuridia Salter Age: 29 yrs Sex: Female : 1995 Arrival Date: 05/31/2024 Time: 17:56 Bed 8 Private MD: ED Physician Luly Lim HPI: 05/31 18:15 This 29 yrs old Female presents to ER via Ambulatory with complaints of Asthma sp3 Exacerbation. 18:15 20-year-old female with history of asthma and hypothyroidism presents with chief sp3 complaint cough, chest pressure and asthma exacerbation over the last 2 to 3 days. She has been using her nebulizer machine which is minimally helped. She denies any fever, chest pain, abdominal pain, nausea, vomiting, diarrhea, syncope, rash, known sick contacts, prolonged immobilization, recent travel history, history of DVT or PE or any other signs or symptoms on ROS at this time.. Historical: - Allergies: 18:10 Codeine; ap3 18:10 Latex; ap3 18:10 Phenergan; ap3 - PMHx: 18:10 Asthma; Hypothyroidism; ap3 - PSHx: 18:10 Ligation of fallopian tube; rhinoplasty; septoplasty; ap3 - Immunization history:: Client reports having NOT received the Covid vaccine. Flu vaccine is not up to date. - Infectious Disease History:: Denies. - Social history:: Smoking status: Patient reports the use of cigarette tobacco products, Reported history of juuling and/or vaping. ROS: 18:16 Constitutional: Negative for fever, chills, and weight loss, Eyes: Negative for injury, sp3 pain, redness, and discharge, ENT: Negative for injury, pain, and discharge, Neck: Negative for injury, pain, and swelling, Cardiovascular: Negative for chest pain, palpitations, and edema, Abdomen/GI: Negative for abdominal pain, nausea, vomiting, diarrhea, and constipation, Back: Negative for injury and pain, MS/Extremity: Negative for injury and deformity, Skin: Negative for injury, rash, and discoloration, Neuro: Negative for headache, weakness, numbness, tingling, and seizure, Psych: Negative for depression, anxiety, suicide ideation, homicidal ideation, and hallucinations, Allergy/Immunology: Negative for hives, rash, and allergies, Endocrine: Negative for neck swelling, polydipsia, polyuria, polyphagia, and marked weight changes, Hematologic/Lymphatic: Negative for swollen nodes, abnormal bleeding, and unusual bruising, 18:16 All other systems are negative, Exam: 18:16 Constitutional: This is a well developed, well nourished patient who is awake, alert, sp3 and in no acute distress. Head/Face: Normocephalic, atraumatic. Eyes: Pupils equal round and reactive to light, extra-ocular motions intact. Lids and lashes normal. Conjunctiva and sclera are non-icteric and not injected. Cornea within normal limits. Periorbital areas with no swelling, redness, or edema. ENT: Nares patent. No nasal discharge, no septal abnormalities noted. External auditory canals are clear. Oropharynx with no redness, swelling, or masses, exudates, or evidence of obstruction, uvula midline. Mucous membranes moist. Neck: Trachea midline, no thyromegaly or masses palpated, and no cervical lymphadenopathy. Supple, full range of motion without nuchal rigidity, or vertebral point tenderness. No Meningismus. Chest/axilla: Normal chest wall appearance and motion. Nontender with no deformity. No lesions are appreciated. Cardiovascular: Regular rate and rhythm with a normal S1 and S2. No gallops, murmurs, or rubs. Normal PMI, no JVD. No pulse deficits. Abdomen/GI: Soft, non-tender, with normal bowel sounds. No distension or tympany. No guarding or rebound. No evidence of tenderness throughout. Back: No spinal tenderness. No costovertebral tenderness. Full range of motion. Skin: Warm, dry with normal turgor. Normal color with no rashes, no lesions, and no evidence of cellulitis. MS/ Extremity: Pulses equal, no cyanosis. Neurovascular intact. Full, normal range of motion. Neuro: Awake and alert, GCS 15, oriented to person, place, time, and situation. Cranial nerves II-XII grossly intact. Motor strength 5/5 in all extremities. Sensory grossly intact. Cerebellar exam normal. Normal gait. Psych: Awake, alert, with orientation to person, place and time. Behavior, mood, and affect are within normal limits. Vital Signs: 18:09 BP 112 / 72; Pulse 56; Resp 18; Temp 98.3(O); Pulse Ox 100% ; Weight 55.34 kg; Height 5 ap3 ft. 7 in. ; 18:09 Body Mass Index 19.11 (55.34 kg, 170.18 cm) ap3 MDM: 18:02 Medical Screening Exam initiated sp3 18:17 Data reviewed: vital signs, nurses notes, lab test result(s), radiologic studies. ED sp3 course: To 9-year-old female with asthma exacerbation and cough. Differential diagnosis includes asthma exacerbation, upper respiratory infection, viral illness, COVID-19, influenza, strep pharyngitis, bronchitis, pneumonia, among others. I am not highly suspicious of acute coronary syndrome, aortic pathology, sepsis, shock or any other critical process. Workup will include chest x-ray, general swabs, albuterol and prednisone. If workup negative we will safely discharge patient home on prednisone and continue using her nebulizers for which she has ample supply and follow-up to her PCP.. 19:18 ED course: All swabs negative and chest x-ray negative as well. Patient is feeling sp3 better. We will safely discharge home with diagnosis of bronchitis with prednisone and Tessalon Perles.. 05/31 18:07 Order name: COVID-19 Ag + Flu A+B Ag; Complete Time: 19:15 sp3 05/31 18:07 Order name: Group A Streptococcus Rapid; Complete Time: 19:15 sp3 05/31 19:08 Order name: Throat Culture EDCT 05/31 18:07 Order name: CXR XRAY; Complete Time: 18:47 sp3 Administered Medications: 18:17 Drug: DuoNeb Nebulize (3:1) (2.5 mg - 0.5 mg) 3 ml Nebulizer once Route: Nebulizer; jb4 18:17 Drug: predniSONE PO 40 mg PO once Route: PO; jb4 Disposition Summary: 05/31/24 19:18 Discharge Ordered Notes: Location: Home sp3 Condition: Stable sp3 Diagnosis - Bronchitis sp3 Followup: sp3 - With: Private Physician - When: Upon discharge from the Emergency Department - Reason: Continuance of care Discharge Instructions: - Discharge Summary Sheet sp3 - Acute Bronchitis, Adult sp3 Forms: - Work release form jb4 - Medication Reconciliation Form sp3 - Antibiotic Education sp3 - Prescription Opioid Use sp3 - Patient Portal Instructions sp3 - Leadership Thank You Letter sp3 Prescriptions: - Tessalon Perles 100 mg Oral Capsule - take 1 capsule ORAL route every 8 hours As needed; 15 capsule; Refills: 0, sp3 Product Selection Permitted - Albuterol Sulfate 2.5 mg /3 mL (0.083 %) Inhalation Solution for Nebulization - inhale 1 unit NEBULIZATION route every 8 hours As needed; 1 Pack; Refills: 0, sp3 Product Selection Permitted - Prednisone 20 mg Oral Tablet - take 2 tablets ORAL route once daily for 5 days; 10 tablet; Refills: 0, Product sp3 Selection Permitted Signatures: Dispatcher [employer] Christopher Neri RN RN jb4 Shamika Reed RN RN ap3 Luly Lim MD MD sp3
--- NOTE | 2024-05-31 19:19 | ER ---
Nurse's Notes [facility] Name: Yuridia Salter Age: 29 yrs Sex: Female : 1995 Arrival Date: 05/31/2024 Time: 17:56 Bed 8 Private MD: Diagnosis: Bronchitis Presentation: 05/31 18:09 Chief complaint: Patient states: she feels like she is having an asthma exacerbation, ap3 and she has a cough and feels short of breath for a few days. Coronavirus screen: Client presents with at least one sign or symptom that may indicate coronavirus-19. Ebola Screen: No symptoms or risks identified at this time. Initial Sepsis Screen: Does the patient meet any 2 criteria? No. Patient's initial sepsis screen is negative. Does the patient have a suspected source of infection? No. Patient's initial sepsis screen is negative. Risk Assessment: Do you want to hurt yourself or someone else? Patient reports no desire to harm self or others. Onset of symptoms is unknown. 18:09 Method Of Arrival: Ambulatory ap3 18:09 Acuity: KAYCEE 3 ap3 Triage Assessment: 18:11 General: Appears in no apparent distress. Behavior is calm, cooperative, appropriate ap3 for age. Pain: Complains of pain in chest Quality of pain is described as pressure. Neuro: Level of Consciousness is awake, alert, obeys commands, Oriented to person, place, time, situation, Appropriate for age. Cardiovascular: Patient's skin is warm and dry. Respiratory: Reports shortness of breath cough that is Airway is patent Respiratory effort is even, unlabored, Respiratory pattern is regular, symmetrical. Historical: - Allergies: 18:10 Codeine; ap3 18:10 Latex; ap3 18:10 Phenergan; ap3 - PMHx: 18:10 Asthma; Hypothyroidism; ap3 - PSHx: 18:10 Ligation of fallopian tube; rhinoplasty; septoplasty; ap3 - Immunization history:: Client reports having NOT received the Covid vaccine. Flu vaccine is not up to date. - Infectious Disease History:: Denies. - Social history:: Smoking status: Patient reports the use of cigarette tobacco products, Reported history of juuling and/or vaping. Screenin:11 [facility] ED Fall Risk Assessment (Adult) History of falling in the last 3 months, ap3 including since admission No falls in past 3 months (0 pts) Confusion or Disorientation No (0 pts) Intoxicated or Sedated No (0 pts) Impaired Gait No (0 pts) Mobility Assist Device Used No (0 pt) Altered Elimination No (0 pt) Score/Fall Risk Level 0 - 2 = Low Risk Oriented to surroundings, Maintained a safe environment, Educated pt \T\ family on fall prevention, incl call for assistance when getting out of bed, Assessed \T\ reinforced patient's understanding of fall precautions, Hourly rounding (assess needs \T\ fall precautionary measures) done, Used ambulatory aids as needed (educated on \T\ assisted with). Abuse screen: Denies threats or abuse. Nutritional screening: No deficits noted. Tuberculosis screening: No symptoms or risk factors identified. Assessment: 18:28 General: Appears in no apparent distress. comfortable, Behavior is calm, cooperative, jb4 appropriate for age. Pain: Denies pain. Neuro: Level of Consciousness is awake, alert, obeys commands, Oriented to person, place, time, situation. Cardiovascular: Patient's skin is warm and dry. Respiratory: Airway is patent Respiratory effort is even, unlabored, Respiratory pattern is regular, symmetrical. Derm: Skin is intact, Skin is pink, warm \T\ dry. Musculoskeletal: Circulation, motion, and sensation intact. Range of motion: intact in all extremities. Vital Signs: 18:09 BP 112 / 72; Pulse 56; Resp 18; Temp 98.3(O); Pulse Ox 100% ; Weight 55.34 kg; Height 5 ap3 ft. 7 in. ; 18:09 Body Mass Index 19.11 (55.34 kg, 170.18 cm) ap3 ED Course: 17:59 Patient arrived in ED. im 18:00 Luly Lim MD is Attending Physician. sp3 18:10 Triage completed. ap3 18:12 Arm band placed on right wrist. ap3 18:28 Patient has correct armband on for positive identification. Bed in low position. Call jb4 light in reach. Side rails up X 1. Provided Education on: plan of care. Client placed on continuous cardiac and pulse oximetry monitoring. NIBP monitoring applied. 18:28 No provider procedures requiring assistance completed. jb4 18:29 CXR XRAY In Process Unspecified. EDMS 19:29 Patient did not have IV access during this emergency room visit. jb4 Administered Medications: 18:17 Drug: DuoNeb Nebulize (3:1) (2.5 mg - 0.5 mg) 3 ml Nebulizer once Route: Nebulizer; jb4 18:17 Drug: predniSONE PO 40 mg PO once Route: PO; jb4 Medication: 18:28 VIS not applicable for this client. jb4 Outcome: 19:18 Discharge ordered by . sp3 19:29 Discharged to home ambulatory, with family, jb4 19:29 Condition: stable 19:29 Discharge instructions given to patient, Instructed on discharge instructions, follow up and referral plans. medication usage, Demonstrated understanding of instructions, follow-up care, medications, Prescriptions given X 3, 19:30 Patient left the ED. jb4 Signatures: Dispatcher [employer] EDChristopher Ruiz RN GLORIA jb4 Shamika Reed RN RN ap3 Luly Lim MD MD sp3 Merline Salter
[2024-05-31 19:34] VITALS: BP 112/72; TEMP 98.3; O2SAT 100
== END 2024-05-31 19:30 | disposition home or self-care (01) ==
LOC: ER 17:56
DX: J40 Bronchitis, not specified as acute or chronic (principal); Z11.52 Encounter for screening for COVID-19; Z72.0 Tobacco use
CPT/HCPCS: 36415; 71045; 87070; 87428; 99284; J7512; J7613; J7644